=== PATIENT | male | born 1965 | race African-American/Black ===

== ENCOUNTER 2021-08-24 09:00 | Inpatient (IN) ==
[~2021-08-24 09:00] MED LIST: DEXTROSE 10% 250 ML BAG IV PRN; GLUCAGON 1 MG VIAL IM PRN
[2021-08-24] MEDS ORDERED: CLORAZEPATE 3.75 MG TABLET PO PRN (09:04)
[2021-08-24] MEDS ORDERED: MORPHINE 2 MG/1 ML SYRINGE IV PRN (09:04)
[2021-08-24] MEDS ORDERED: NITROGLYCERIN SL 0.4 MG TABLET SL PRN (09:04)
[2021-08-24 10:26] LABS: Basophils % 0.6 % (0.0-0.8); Eosinophils # 0.1 10*3/uL (0.0-0.87); Eosinophils % 2.3 % (0.00-10.9); Hematocrit 31.2 VOL% (42.0-52.0); Hemoglobin 10.2 GM/DL (14.0-18.0); Immature Granulocytes % 0.3 %; Immature Granulocytes Absolute 0.01 #; Lymphocytes # 0.8 10*3/uL (1.4-4.0); Lymphocytes % 23.9 % (21.2-54.2); Mean Corpuscular HGB Conc 32.7 GM/DL (32-36); Mean Corpuscular Volume 91.8 FL (87-102); Mean Platelet Volume 11.8 FL (9.6-12.0); Monocytes # 0.3 10*3/uL (0.11-0.8); Monocytes % 8.2 % (1.7-12.7); Neutrophils % 64.7 % (38.7-73.9); Platelet Count 93 T/CUMM (130-400); Red Cell Distribution Width 13.3 % (9.3-17.3); White Blood Count 3.4 T/CUMM (4-12)
[2021-08-24 10:42] LABS: Arterial Base Excess iSTAT 4 MMOL/L (-2.5-2.5); Arterial Bicarbonate iSTAT 28.6 MMOL/L (20-26); Arterial O2 Saturation iSTAT 97 % (95-100); Arterial PCO2 iSTAT 44 MM HG (35-48); Arterial PO2 iSTAT 92 MM HG (80-95); Arterial Total CO2 iSTAT 30 MMO/L (23-27); Arterial pH iSTAT 7.426 (7.35-7.45)
[2021-08-24 10:46] LABS: Hypochromia Slight; Microcytosis Slight; Platelet Estimate Decreased
[2021-08-24 10:55] LABS: Albumin 3.1 G/DL (3.4-5.0); Bilirubin,Total 0.6 MG/DL (0.20-1.00); Calcium 8.8 MG/DL (8.5-10.1); Osmolality,Calculated 296.4 MOS/KG (273-304); Potassium 4.5 MMOL/L (3.5-5.1); Total Protein 7.6 G/DL (6.4-8.2)
[2021-08-24] MEDS: CHLORHEXIDINE 4% SOLN 118 ML BOTTLE TOP SCH (17:00)
[2021-08-24] MEDS: SODIUM CHLORIDE 0.9% 1,000 ML IV SCH (17:00)
[2021-08-24] MEDS: SEVELAMER CARBONATE 800 MG TABLET PO SCH ×2 (18:31→21:44)
[2021-08-24] MEDS: carvediloL 25 MG TABLET PO SCH (18:32)
[2021-08-24] MEDS: CHLORHEXIDINE 0.12% ORAL RINSE 60 ML BOTTLE SWISH/SPIT SCH ×2 (19:15→21:44)
[2021-08-24] MEDS ORDERED: NITROGLYCERIN DRIP 50 MG/250 ML BOTTLE IV PRN (21:26)
[2021-08-25] MEDS: CHLORHEXIDINE 4% SOLN 118 ML BOTTLE TOP SCH ×2 (00:05→04:00)
[2021-08-25] MEDS ORDERED: PAPAVERINE 60 MG/2 ML VIAL ONE ×2 (04:19→08:56)
[2021-08-25] MEDS ORDERED: VANCOMYCIN 1,000 MG VIAL ONE (04:20)
[2021-08-25] MEDS ORDERED: VANCOMYCIN 500 MG VIAL ONE (04:20)
[2021-08-25] MEDS ORDERED: CEFUROXIME INJ 1,500 MG in SODIUM CHLORIDE 0.9% 100 ML IV ONE (05:00)
[2021-08-25] MEDS ORDERED: DIAZEPAM 5 MG TABLET PO ONE (05:30)
[2021-08-25] MEDS ORDERED: FAMOTIDINE 20 MG TABLET PO ONE (05:30)
[2021-08-25 05:31] LABS: Basophils % 0.8 % (0.0-0.8); Eosinophils # 0.1 10*3/uL (0.0-0.87); Eosinophils % 2.3 % (0.00-10.9); Hematocrit 30.3 VOL% (42.0-52.0); Hemoglobin 9.9 GM/DL (14.0-18.0); Immature Granulocytes % 0.5 %; Immature Granulocytes Absolute 0.02 #; Lymphocytes # 0.9 10*3/uL (1.4-4.0); Lymphocytes % 21.8 % (21.2-54.2); Mean Corpuscular HGB Conc 32.7 GM/DL (32-36); Mean Corpuscular Volume 92.1 FL (87-102); Mean Platelet Volume 11.9 FL (9.6-12.0); Monocytes # 0.3 10*3/uL (0.11-0.8); Monocytes % 8.5 % (1.7-12.7); Neutrophils % 66.1 % (38.7-73.9); Platelet Count 103 T/CUMM (130-400); Red Blood Count 3.29 MC/CUMM (3.8-5.5); Red Cell Distribution Width 13.2 % (9.3-17.3); White Blood Count 3.9 T/CUMM (4-12)
[2021-08-25] MEDS ORDERED: SEVOFLURANE 1 UNIT/15 MINUTE INH ONE (05:44)
[2021-08-25] MEDS ORDERED: MINERAL OIL/PETROLATUM OPH OINT 3.5 GM TUBE ONE (05:44)
[2021-08-25] MEDS ORDERED: SUFentanil 250 MCG/5 ML AMP ONE (05:44)
[2021-08-25] MEDS ORDERED: AMINOCAPROIC ACID 5,000 MG/20 ML VIAL ONE (05:44)
[2021-08-25] MEDS ORDERED: ePHEDrine 50 MG/ML VIAL ONE (05:44)
[2021-08-25] MEDS ORDERED: NITROGLYCERIN DRIP 50 MG/250 ML BOTTLE IV ONE (05:44)
[2021-08-25] MEDS ORDERED: MIDAZOLAM 10 MG/2 ML VIAL ONE ×4 (05:44→08:58)
[2021-08-25] MEDS ORDERED: SODIUM CHLORIDE 0.9% 1,000 ML IV ONE (05:44)
[2021-08-25] MEDS ORDERED: ETOMIDATE 40 MG/20 ML VIAL IV ONE (05:44)
[2021-08-25] MEDS ORDERED: SODIUM CHLORIDE 0.9% 250 ML IV ONE ×3 (05:44→10:59)
[2021-08-25] MEDS ORDERED: CALCIUM CHLORIDE 1,000 MG/10 ML VIAL IV ONE ×2 (05:44→10:54)
[2021-08-25] MEDS ORDERED: VECURONIUM 10 MG VIAL IV ONE (05:44)
[2021-08-25] MEDS ORDERED: LIDOCAINE 2% 5 ML VIAL ONE ×2 (05:44→10:44)
[2021-08-25] MEDS ORDERED: LACTATED RINGERS 1,000 ML IV ONE (05:44)
[2021-08-25 05:48] LABS: Calcium 9.1 MG/DL (8.5-10.1); Osmolality,Calculated 287.5 MOS/KG (273-304); Potassium 4.5 MMOL/L (3.5-5.1)
[2021-08-25] MEDS ORDERED: PHENYLEPHRINE 10 MG/1 ML VIAL IV ONE (06:01)
[2021-08-25 07:41] LABS: ABG Base Excess 3.9 MMOL/L (-2.5-2.5); ABG Oxygen Saturation 99.6 % (95-100); ABG PCO2 43.5 MM HG (35-48); ABG PH 7.428 (7.35-7.45); ABG TCO2 26.3 MMOL/L (23-27); Glucose Heart Surgery 93 MG/DL (74-106); Hematocrit Heart Surgery 28.6 PERCENT (42-52); Hemoglobin Heart Surgery 9.2 G/DL (14.0-18.0); Ionized Calcium Arterial 1.11 MMOL/L (1.21-1.46); PCO2 Patient Temp Arterial 43.5 MMHG; PH Patient Temp Arterial 7.428; Patient Temperature 37 CELCIUS; Potassium Heart/CVR 4.6 MMOL/L (3.5-5.1); Sodium Heart/CVR 139 MMOL/L (135-145)
[2021-08-25] MEDS ORDERED: SODIUM BICARBONATE 50 MEQ/50 ML VIAL IV ONE ×3 (08:14→11:13)
[2021-08-25] MEDS ORDERED: PHENYLEPHRINE DRIP 40 MG/250 ML PREMIX IV ONE (08:15)
[2021-08-25] MEDS ORDERED: CALCIUM CHLORIDE 1,000 MG/10 ML SYRINGE IV ONE (08:15)
[2021-08-25] MEDS ORDERED: NITROPRUSSIDE 50 MG/2 ML VIAL ONE (08:15)
[2021-08-25] MEDS ORDERED: POTASSIUM CHLORIDE RIDER 20 MEQ/100 ML PREMIX IV ONE (08:15)
[2021-08-25] MEDS ORDERED: HEPARIN/NACL 0.9% 2 UNITS/ML 1,000 UNIT/500 ML BAG IV ONE (09:02)
[2021-08-25 09:11] LABS: Hematocrit Heart Surgery 20.4 PERCENT (42-52); Hemoglobin Heart Surgery 6.5 G/DL (14.0-18.0); PH Patient Temp Venous 7.441; PO2 Patient Temp Venous 40.7 MM HG; Potassium Heart/CVR 5.6 MMOL/L (3.5-5.1); VBG Base Excess 2.7 MEQ/L (0-4); VBG HCO3 26.6 MEQ/L (24-28); VBG Oxygen Saturation 82.6 %; VBG PCO2 45.1 MMHG (41-51); VBG PH 7.397; VBG PO2 49.9 MMHG (17-40); VBG Total CO2 26.5 MMOL/L
[2021-08-25 09:41] LABS: Hematocrit Heart Surgery 24.4 PERCENT (42-52); Hemoglobin Heart Surgery 7.8 G/DL (14.0-18.0); PCO2 Patient Temp Venous 32.3 MM HG; PH Patient Temp Venous 7.477; PO2 Patient Temp Venous 37.6 MM HG; Potassium Heart/CVR 5.9 MMOL/L (3.5-5.1); VBG Base Excess 0.8 MEQ/L (0-4); VBG HCO3 24.9 MEQ/L (24-28); VBG Oxygen Saturation 79.5 %; VBG PCO2 37.4 MMHG (41-51); VBG PH 7.433; VBG PO2 46.2 MMHG (17-40); VBG Total CO2 23.4 MMOL/L
[2021-08-25 10:12] LABS: Hematocrit Heart Surgery 23.2 PERCENT (42-52); Hemoglobin Heart Surgery 7.4 G/DL (14.0-18.0); PCO2 Patient Temp Venous 38.6 MM HG; PH Patient Temp Venous 7.394; PO2 Patient Temp Venous 39.9 MM HG; Potassium Heart/CVR 5.8 MMOL/L (3.5-5.1); VBG Base Excess -1.1 MEQ/L (0-4); VBG HCO3 23.2 MEQ/L (24-28); VBG Oxygen Saturation 68.3 %; VBG PCO2 38.6 MMHG (41-51); VBG PH 7.394; VBG PO2 39.9 MMHG (17-40); VBG Total CO2 22.3 MMOL/L
[2021-08-25] MEDS ORDERED: THROMBIN TOPICAL (RECOMBINANT) 5,000 UNIT VIAL TOP ONE (10:26)
[2021-08-25 10:36] LABS: ABG Base Excess -2.3 MMOL/L (-2.5-2.5); ABG HCO3 22.5 MMOL/L (20-26); ABG Oxygen Saturation 99.4 % (95-100); ABG PCO2 38.5 MM HG (35-48); ABG PH 7.376 (7.35-7.45); ABG TCO2 21.3 MMOL/L (23-27); Glucose Heart Surgery 147 MG/DL (74-106); Hematocrit Heart Surgery 22.4 PERCENT (42-52); Hemoglobin Heart Surgery 7.2 G/DL (14.0-18.0); Ionized Calcium Arterial 1.14 MMOL/L (1.21-1.46); PCO2 Patient Temp Arterial 38.5 MMHG; PH Patient Temp Arterial 7.376; Patient Temperature 37 CELCIUS; Potassium Heart/CVR 5.3 MMOL/L (3.5-5.1); Sodium Heart/CVR 136 MMOL/L (135-145)
[2021-08-25] MEDS ORDERED: methylPREDNISolone SOD SUC 1,000 MG/8 ML VIAL ONE (10:44)
[2021-08-25] MEDS ORDERED: MAGNESIUM SULFATE 5 GM/10 ML VIAL IV ONE (10:44)
[2021-08-25] MEDS ORDERED: ALBUMIN 25% 25 GM/100 ML VIAL IV ONE (10:44)
[2021-08-25] MEDS ORDERED: HEPARIN 10,000 UNIT/10 ML VIAL ONE (10:45)
[2021-08-25] MEDS ORDERED: PROTAMINE SULFATE 250 MG/25 ML VIAL IV ONE (10:45)
[2021-08-25] MEDS ORDERED: MANNITOL 12.5 GM/50 ML VIAL IV ONE (10:45)
[2021-08-25] MEDS ORDERED: DEXTROSE 5% KCL 20 MEQ 20 MEQ/1,000 ML BAG IV ONE (10:45)
[2021-08-25] MEDS ORDERED: PROTAMINE SULFATE 50 MG/5 ML VIAL IV ONE ×2 (10:46→11:10)
[2021-08-25] MEDS ORDERED: LACTATED RINGERS 250 ML IV PRN (10:55)
[2021-08-25] MEDS ORDERED: PHENYLEPHRINE DRIP 40 MG/250 ML PREMIX IV PRN (10:55)
[2021-08-25] MEDS ORDERED: ONDANSETRON 4 MG/2 ML VIAL IV PRN (10:55)
[2021-08-25] MEDS ORDERED: MIDAZOLAM 10 MG/2 ML VIAL IV PRN (10:55)
[2021-08-25] MEDS ORDERED: VECURONIUM 10 MG VIAL IV PRN ×2 (10:55)
[2021-08-25] MEDS ORDERED: POTASSIUM CHLORIDE RIDER 20 MEQ/100 ML PREMIX IV PRN (10:55)
[2021-08-25] MEDS ORDERED: MAGNESIUM SULF RIDER 2 GM/50 ML PREMIX IV PRN (10:55)
[2021-08-25] MEDS ORDERED: INSULIN REGULAR 100 UNIT/ML IV ONE ×2 (10:55→17:09)
[2021-08-25] MEDS ORDERED: DEXTROSE 10% 250 ML BAG IV PRN ×2 (10:55)
[2021-08-25] MEDS ORDERED: MIDAZOLAM 2 MG/2 ML VIAL IV PRN (10:55)
[2021-08-25] MEDS ORDERED: CALCIUM CHLORIDE 1,000 MG/10 ML SYRINGE IV PRN (10:55)
[2021-08-25] MEDS ORDERED: ACETAMINOPHEN 650 MG SUPP RECTAL PRN (10:55)
[2021-08-25] MEDS ORDERED: MAGNESIUM SULF RIDER 4 GM/100 ML PREMIX IV PRN (10:55)
[2021-08-25] MEDS ORDERED: POTASSIUM CHLORIDE RIDER 10 MEQ/100 ML PREMIX IV PRN (10:55)
[2021-08-25] MEDS ORDERED: INSULIN REGULAR 100 UNIT/ML IV PRN (10:55)
[2021-08-25] MEDS ORDERED: ALBUMIN 5% 12.5 GM/250 ML VIAL IV PRN (10:55)
[2021-08-25] MEDS ORDERED: FAMOTIDINE 20 MG/2 ML VIAL IV ONE (11:02)
[2021-08-25 11:10] LABS: ABG Base Excess -4.7 MMOL/L (-2.5-2.5); ABG HCO3 20.5 MMOL/L (20-26); ABG Oxygen Saturation 99.5 % (95-100); ABG PCO2 42.9 MM HG (35-48); ABG PH 7.306 (7.35-7.45); ABG TCO2 19.9 MMOL/L (23-27); Glucose Heart Surgery 148 MG/DL (74-106); Hematocrit Heart Surgery 27.3 PERCENT (42-52); Hemoglobin Heart Surgery 8.8 G/DL (14.0-18.0); Ionized Calcium Arterial 1.44 MMOL/L (1.21-1.46); PCO2 Patient Temp Arterial 42.9 MMHG; PH Patient Temp Arterial 7.306; Patient Temperature 37 CELCIUS; Potassium Heart/CVR 5.3 MMOL/L (3.5-5.1); Sodium Heart/CVR 136 MMOL/L (135-145)
[2021-08-25] MEDS ORDERED: SODIUM CHLORIDE 0.9% 250 ML IV PRN (11:16)
[2021-08-25] MEDS: CHLORHEXIDINE 0.12% ORAL RINSE 60 ML BOTTLE SWISH/SPIT SCH ×2 (11:21→21:12)
[2021-08-25] MEDS: carvediloL 25 MG TABLET PO SCH (11:21)
[2021-08-25] MEDS: SODIUM CHLORIDE 0.9% 1,000 ML IV SCH (11:21)
[2021-08-25] MEDS: SEVELAMER CARBONATE 800 MG TABLET PO SCH (11:21)
[2021-08-25] MEDS ORDERED: NITROGLYCERIN DRIP 50 MG/250 ML BOTTLE IV PRN (11:56)
[2021-08-25] MEDS: SODIUM CHLORIDE 0.45% 1,000 ML IV SCH ×2 (12:02→14:21)
[2021-08-25 12:46] LABS: ABG Base Excess -0.2 MMOL/L (-2.5-2.5); ABG HCO3 24.3 MMOL/L (20-26); ABG Oxygen Saturation 99.3 % (95-100); ABG PCO2 38.5 MM HG (35-48); ABG PH 7.407 (7.35-7.45); ABG TCO2 22.3 MMOL/L (23-27); Glucose Heart Surgery 147 MG/DL (74-106); Hematocrit Heart Surgery 28.1 PERCENT (42-52); Hemoglobin Heart Surgery 9.1 G/DL (14.0-18.0); Potassium Heart/CVR 4.8 MMOL/L (3.5-5.1)
[2021-08-25 12:48] LABS: Basophils % 0.2 % (0.0-0.8); Eosinophils % 0.5 % (0.00-10.9); Hematocrit 26.1 VOL% (42.0-52.0); Hemoglobin 8.7 GM/DL (14.0-18.0); Immature Granulocytes % 0.3 %; Immature Granulocytes Absolute 0.02 #; Lymphocytes # 0.5 10*3/uL (1.4-4.0); Lymphocytes % 9.3 % (21.2-54.2); Mean Corpuscular HGB Conc 33.3 GM/DL (32-36); Mean Corpuscular Volume 90.9 FL (87-102); Mean Platelet Volume 11.4 FL (9.6-12.0); Monocytes # 0.3 10*3/uL (0.11-0.8); Monocytes % 4.8 % (1.7-12.7); Neutrophils % 84.9 % (38.7-73.9); Platelet Count 103 T/CUMM (130-400); Red Blood Count 2.87 MC/CUMM (3.8-5.5); Red Cell Distribution Width 13.5 % (9.3-17.3); White Blood Count 5.8 T/CUMM (4-12)
[2021-08-25] MEDS: NITROPRUSSIDE 100 MG in DEXTROSE 5% 250 ML IV PRN (13:03)
[2021-08-25 13:09] LABS: CKMB % 3.66 %; High Sensitive Troponin I* 3018.7 ng/L (0-78)
[2021-08-25 13:10] LABS: INR 1.4; PT Patient Result 15.1 SECS (10.5-12.0); Partial Thromboplastin Time 31.8 SECS (23.8-32.1)
[2021-08-25 13:34] LABS: Albumin 2.5 G/DL (3.4-5.0); Bilirubin,Total 1.2 MG/DL (0.20-1.00); Calcium 8.5 MG/DL (8.5-10.1); Osmolality,Calculated 291.3 MOS/KG (273-304); Total Protein 5.8 G/DL (6.4-8.2)
[2021-08-25 13:53] LABS: ABG Base Excess 0.1 MMOL/L (-2.5-2.5); ABG HCO3 24.6 MMOL/L (20-26); ABG Oxygen Saturation 98.5 % (95-100); ABG PCO2 39.1 MM HG (35-48); ABG PH 7.408 (7.35-7.45); ABG TCO2 22.9 MMOL/L (23-27); Glucose Heart Surgery 176 MG/DL (74-106); Hematocrit Heart Surgery 26.2 PERCENT (42-52); Hemoglobin Heart Surgery 8.4 G/DL (14.0-18.0); Potassium Heart/CVR 5.2 MMOL/L (3.5-5.1)
[2021-08-25] MEDS: MORPHINE 10 MG/1 ML VIAL IV PRN (14:39)
[2021-08-25 14:52] LABS: Basophils % 0.2 % (0.0-0.8); Eosinophils % 0.5 % (0.00-10.9); Hematocrit 26.9 VOL% (42.0-52.0); Hemoglobin 9.2 GM/DL (14.0-18.0); Immature Granulocytes % 0.8 %; Immature Granulocytes Absolute 0.05 #; Lymphocytes # 0.5 10*3/uL (1.4-4.0); Lymphocytes % 8.1 % (21.2-54.2); Mean Corpuscular HGB Conc 34.2 GM/DL (32-36); Mean Corpuscular Volume 89.4 FL (87-102); Mean Platelet Volume 11.5 FL (9.6-12.0); Monocytes # 0.3 10*3/uL (0.11-0.8); Monocytes % 4.5 % (1.7-12.7); Neutrophils % 85.9 % (38.7-73.9); Platelet Count 116 T/CUMM (130-400); Red Blood Count 3.01 MC/CUMM (3.8-5.5); Red Cell Distribution Width 13.6 % (9.3-17.3); White Blood Count 6.4 T/CUMM (4-12)
[2021-08-25] MEDS: INSULIN REGULAR DRIP 100 ML IV SCH (14:54)
[2021-08-25 15:15] LABS: Platelet Estimate Decreased
[2021-08-25 17:41] LABS: ABG Base Excess -1.4 MMOL/L (-2.5-2.5); ABG HCO3 23.3 MMOL/L (20-26); ABG PCO2 41.6 MM HG (35-48); ABG PH 7.367 (7.35-7.45); Glucose Heart Surgery 146 MG/DL (74-106); Hematocrit Heart Surgery 28.8 PERCENT (42-52); Hemoglobin Heart Surgery 9.3 G/DL (14.0-18.0); Potassium Heart/CVR 4.6 MMOL/L (3.5-5.1)
[2021-08-25] MEDS: CEFUROXIME INJ 1,500 MG in SODIUM CHLORIDE 0.9% 100 ML IV SCH (18:26)
[2021-08-25 18:59] LABS: CKMB % 3.57 %
[2021-08-25 19:01] LABS: High Sensitive Troponin I* 4728.6 ng/L (0-78)
[2021-08-25 21:13] LABS: ABG Base Excess -2.5 MMOL/L (-2.5-2.5); ABG HCO3 22.4 MMOL/L (20-26); ABG Oxygen Saturation 98.8 % (95-100); ABG PCO2 41.6 MM HG (35-48); ABG TCO2 21.2 MMOL/L (23-27); Glucose Heart Surgery 129 MG/DL (74-106); Hematocrit Heart Surgery 28.6 PERCENT (42-52); Hemoglobin Heart Surgery 9.2 G/DL (14.0-18.0); Potassium Heart/CVR 5.6 MMOL/L (3.5-5.1)
[2021-08-25 23:20] LABS: ABG Base Excess -4.2 MMOL/L (-2.5-2.5); ABG HCO3 20.8 MMOL/L (20-26); ABG Oxygen Saturation 94.7 % (95-100); ABG PCO2 49.5 MM HG (35-48); ABG PH 7.272 (7.35-7.45); ABG PO2 84.9 MM HG (80-95); ABG TCO2 21.2 MMOL/L (23-27); Glucose Heart Surgery 162 MG/DL (74-106); Hematocrit Heart Surgery 29.7 PERCENT (42-52); Hemoglobin Heart Surgery 9.6 G/DL (14.0-18.0)
[2021-08-25 23:24] LABS: Potassium Heart/CVR 6.7 MMOL/L (3.5-5.1)
[2021-08-25] MEDS ORDERED: INSULIN REGULAR 10 UNIT, CALCIUM GLUCONATE 1,000 MG in DEXTROSE 10% 250 ML IV ONE (23:25)
[2021-08-26 02:18] LABS: ABG Base Excess -4.2 MMOL/L (-2.5-2.5); ABG HCO3 20.9 MMOL/L (20-26); ABG Oxygen Saturation 95.7 % (95-100); ABG PCO2 43.6 MM HG (35-48); ABG PO2 87.2 MM HG (80-95); ABG TCO2 20.5 MMOL/L (23-27); Glucose Heart Surgery 166 MG/DL (74-106); Hematocrit Heart Surgery 27.3 PERCENT (42-52); Hemoglobin Heart Surgery 8.8 G/DL (14.0-18.0); Potassium Heart/CVR 4.6 MMOL/L (3.5-5.1)
[2021-08-26] MEDS: CHLORHEXIDINE 4% SOLN 118 ML BOTTLE TOP PRN ×2 (04:00→22:40)
[2021-08-26 04:23] LABS: ABG Base Excess -3.7 MMOL/L (-2.5-2.5); ABG HCO3 21.3 MMOL/L (20-26); ABG PH 7.302 (7.35-7.45); ABG PO2 78.1 MM HG (80-95); ABG TCO2 21.2 MMOL/L (23-27); Glucose Heart Surgery 77 MG/DL (74-106); Hematocrit Heart Surgery 28.2 PERCENT (42-52); Hemoglobin Heart Surgery 9.1 G/DL (14.0-18.0); Potassium Heart/CVR 4.7 MMOL/L (3.5-5.1)
[2021-08-26 04:26] LABS: Basophils % 0.1 % (0.0-0.8); Hematocrit 27.6 VOL% (42.0-52.0); Immature Granulocytes % 0.5 %; Immature Granulocytes Absolute 0.04 #; Lymphocytes # 0.5 10*3/uL (1.4-4.0); Lymphocytes % 5.9 % (21.2-54.2); Mean Corpuscular HGB Conc 32.6 GM/DL (32-36); Mean Corpuscular Volume 91.4 FL (87-102); Monocytes # 0.3 10*3/uL (0.11-0.8); Monocytes % 3.8 % (1.7-12.7); Neutrophils % 89.7 % (38.7-73.9); Platelet Count 111 T/CUMM (130-400); Red Blood Count 3.02 MC/CUMM (3.8-5.5); Red Cell Distribution Width 14.1 % (9.3-17.3); White Blood Count 7.9 T/CUMM (4-12)
[2021-08-26 04:44] LABS: Albumin 2.9 G/DL (3.4-5.0); Bilirubin,Direct 0.56 MG/DL (0.0-0.20); Bilirubin,Total 0.8 MG/DL (0.20-1.00); Osmolality,Calculated 295.1 MOS/KG (273-304); Potassium 4.9 MMOL/L (3.5-5.1); Total Protein 6.3 G/DL (6.4-8.2)
[2021-08-26 04:53] LABS: CKMB % 5.3 %
[2021-08-26 05:01] LABS: High Sensitive Troponin I* 9910.9 ng/L (0-78)
[2021-08-26] MEDS: CEFUROXIME INJ 1,500 MG in SODIUM CHLORIDE 0.9% 100 ML IV SCH ×2 (06:37→18:09)
[2021-08-26 08:07] LABS: ABG Base Excess -5.1 MMOL/L (-2.5-2.5); ABG Oxygen Saturation 95.3 % (95-100); ABG PCO2 36.8 MM HG (35-48); ABG PH 7.352 (7.35-7.45); ABG TCO2 21.1 MMOL/L (23-27); Glucose Heart Surgery 125 MG/DL (74-106); Hemoglobin Heart Surgery 8.9 G/DL (14.0-18.0)
[2021-08-26 08:09] LABS: Potassium Heart/CVR 6.8 MMOL/L (3.5-5.1)
[2021-08-26] MEDS: MORPHINE 10 MG/1 ML VIAL IV PRN ×2 (08:37→13:34)
[2021-08-26] MEDS ORDERED: amLODIPine 5 MG TABLET PO SCH (09:00)
[2021-08-26] MEDS ORDERED: PANTOPRAZOLE 40 MG VIAL IV ONE (09:00)
[2021-08-26] MEDS: CHLORHEXIDINE 0.12% ORAL RINSE 60 ML BOTTLE SWISH/SPIT SCH ×2 (09:01→21:34)
[2021-08-26 09:21] LABS: ABG Base Excess -1.1 MMOL/L (-2.5-2.5); ABG HCO3 23.4 MMOL/L (20-26); ABG Oxygen Saturation 95.3 % (95-100); ABG PCO2 46.1 MM HG (35-48); ABG PO2 83.6 MM HG (80-95); ABG TCO2 22.9 MMOL/L (23-27); Glucose Heart Surgery 136 MG/DL (74-106); Hematocrit Heart Surgery 29.7 PERCENT (42-52); Hemoglobin Heart Surgery 9.6 G/DL (14.0-18.0); Potassium Heart/CVR 5.5 MMOL/L (3.5-5.1)
[2021-08-26 10:58] LABS: ABG Base Excess 0.5 MMOL/L (-2.5-2.5); ABG HCO3 24.9 MMOL/L (20-26); ABG Oxygen Saturation 96.3 % (95-100); ABG PCO2 42.2 MM HG (35-48); ABG PH 7.391 (7.35-7.45); ABG PO2 86.1 MM HG (80-95); ABG TCO2 23.2 MMOL/L (23-27); Glucose Heart Surgery 129 MG/DL (74-106); Hemoglobin Heart Surgery 10.4 G/DL (14.0-18.0); Potassium Heart/CVR 4.4 MMOL/L (3.5-5.1)
[2021-08-26] MEDS ORDERED: DEXTROSE 10% 25 GM/250 ML BAG IV PRN (10:58)
[2021-08-26] MEDS ORDERED: GLUCAGON 1 MG VIAL IM PRN (10:58)
[2021-08-26] MEDS: INSULIN REGULAR DRIP 100 ML IV SCH (11:02)
[2021-08-26 11:17] LABS: CKMB % 5.44 %
[2021-08-26] MEDS: ASPIRIN CHEW 81 MG TABLET PO SCH (11:35)
[2021-08-26] MEDS: carvediloL 6.25 MG TABLET PO SCH ×2 (11:35→21:34)
[2021-08-26] MEDS: INSULIN REGULAR 100 UNIT/ML SUBCUT SCH ×3 (11:45→20:43)
[2021-08-26] MEDS: SODIUM CHLORIDE 0.45% 1,000 ML IV SCH ×2 (11:45→11:47)
[2021-08-26] MEDS ORDERED: NITROPRUSSIDE 50 MG/2 ML VIAL ONE (12:21)
[2021-08-26] MEDS: NITROPRUSSIDE 100 MG in DEXTROSE 5% 250 ML IV PRN (12:27)
[2021-08-26] MEDS: SEVELAMER CARBONATE 800 MG TABLET PO SCH ×2 (12:29→16:43)
[2021-08-26] MEDS ORDERED: amLODIPine 5 MG TABLET PO ONE (14:37)
[2021-08-26] MEDS ORDERED: HYDROmorphone 1 MG/1 ML SYRINGE IV PRN (17:15)
[2021-08-26 18:50] LABS: CKMB % 3.69 %
[2021-08-27 04:48] LABS: Hematocrit 24.8 VOL% (42.0-52.0); Hemoglobin 8.1 GM/DL (14.0-18.0); Immature Granulocytes % 1.1 %; Immature Granulocytes Absolute 0.09 #; Lymphocytes # 0.4 10*3/uL (1.4-4.0); Lymphocytes % 4.8 % (21.2-54.2); Mean Corpuscular HGB Conc 32.7 GM/DL (32-36); Mean Corpuscular Volume 92.5 FL (87-102); Mean Platelet Volume 12.2 FL (9.6-12.0); Monocytes # 0.6 10*3/uL (0.11-0.8); Monocytes % 7.6 % (1.7-12.7); Neutrophils % 86.5 % (38.7-73.9); Platelet Count 83 T/CUMM (130-400); Red Blood Count 2.68 MC/CUMM (3.8-5.5); Red Cell Distribution Width 14.1 % (9.3-17.3); White Blood Count 7.9 T/CUMM (4-12)
[2021-08-27 05:05] LABS: Albumin 2.6 G/DL (3.4-5.0); Bilirubin,Direct 0.5 MG/DL (0.0-0.20); Bilirubin,Total 0.8 MG/DL (0.20-1.00); CKMB % 2.81 %; Calcium 8.6 MG/DL (8.5-10.1); Osmolality,Calculated 286.1 MOS/KG (273-304); Potassium 5.7 MMOL/L (3.5-5.1); Total Protein 6.2 G/DL (6.4-8.2)
[2021-08-27 05:07] LABS: Hypochromia 1+; Microcytosis 1+; Platelet Estimate Decreased
[2021-08-27] MEDS: ASPIRIN CHEW 81 MG TABLET PO SCH (08:05)
[2021-08-27] MEDS: SEVELAMER CARBONATE 800 MG TABLET PO SCH ×3 (08:06→16:50)
[2021-08-27] MEDS: carvediloL 6.25 MG TABLET PO SCH ×2 (08:06→22:07)
[2021-08-27] MEDS: amLODIPine 10 MG TABLET PO SCH (08:06)
[2021-08-27] MEDS ORDERED: ALUMINUM/MAGNES/SIMETH MAX STR 30 ML UDCUP PO PRN (08:39)
[2021-08-27] MEDS ORDERED: GLUCAGON 1 MG VIAL IM PRN (08:39)
[2021-08-27] MEDS ORDERED: POTASSIUM CHLORIDE 20 MEQ TABLET PO PRN (08:39)
[2021-08-27] MEDS ORDERED: MAGNESIUM SULF RIDER 2 GM/50 ML PREMIX IV PRN (08:39)
[2021-08-27] MEDS ORDERED: MAGNESIUM SULF RIDER 4 GM/100 ML PREMIX IV PRN (08:39)
[2021-08-27] MEDS ORDERED: ONDANSETRON 4 MG/2 ML VIAL IV PRN (08:39)
[2021-08-27] MEDS ORDERED: ACETAMINOPHEN 325 MG TABLET PO PRN (08:39)
[2021-08-27] MEDS ORDERED: MAGNESIUM HYDROXIDE SUSP 30 ML UDCUP PO PRN (08:39)
[2021-08-27] MEDS ORDERED: ZALEPLON 5 MG CAPSULE PO PRN (08:39)
[2021-08-27] MEDS ORDERED: DEXTROSE 10% 250 ML BAG IV PRN (08:44)
[2021-08-27] MEDS: DOCUSATE SODIUM 100 MG CAPSULE PO SCH (10:17)
[2021-08-27] MEDS: INSULIN REGULAR 100 UNIT/ML SUBCUT SCH ×3 (10:17→22:09)
[2021-08-27] MEDS: FERROUS SULFATE 325 MG TABLET PO SCH (10:17)
[2021-08-27] MEDS: CHLORHEXIDINE 0.12% ORAL RINSE 60 ML BOTTLE SWISH/SPIT SCH ×3 (10:17→22:08)
[2021-08-27] MEDS: PANTOPRAZOLE 40 MG TABLET PO SCH (10:18)
[2021-08-27] MEDS: FENOFIBRATE 145 MG TABLET PO SCH (22:06)
[2021-08-28 05:40] LABS: Eosinophils # 0.1 10*3/uL (0.0-0.87); Eosinophils % 1.4 % (0.00-10.9); Hematocrit 24.1 VOL% (42.0-52.0); Hemoglobin 7.9 GM/DL (14.0-18.0); Immature Granulocytes % 1.4 %; Immature Granulocytes Absolute 0.07 #; Lymphocytes # 0.7 10*3/uL (1.4-4.0); Lymphocytes % 13.2 % (21.2-54.2); Mean Corpuscular HGB Conc 32.8 GM/DL (32-36); Mean Corpuscular Volume 91.6 FL (87-102); Mean Platelet Volume 12.2 FL (9.6-12.0); Monocytes # 0.5 10*3/uL (0.11-0.8); Monocytes % 9.9 % (1.7-12.7); Neutrophils % 74.1 % (38.7-73.9); Platelet Count 74 T/CUMM (130-400); Red Blood Count 2.63 MC/CUMM (3.8-5.5); Red Cell Distribution Width 13.6 % (9.3-17.3); White Blood Count 5.2 T/CUMM (4-12)
[2021-08-28 06:00] LABS: Albumin 2.3 G/DL (3.4-5.0); Albumin 2.5 G/DL (3.4-5.0); Bilirubin,Direct 0.35 MG/DL (0.0-0.20); Bilirubin,Direct 0.39 MG/DL (0.0-0.20); Bilirubin,Indirect 0.3 MG/DL (0.0-1.0); Bilirubin,Total 0.6 MG/DL (0.20-1.00); Bilirubin,Total 0.7 MG/DL (0.20-1.00); CKMB % 1.51 %; Calcium 8.5 MG/DL (8.5-10.1); High Sensitive Troponin I* 11854.6 ng/L (0-78); Osmolality,Calculated 293.2 MOS/KG (273-304); Potassium 5.1 MMOL/L (3.5-5.1); Total Protein 6.4 G/DL (6.4-8.2)
[2021-08-28] MEDS ORDERED: FUROSEMIDE 40 MG/4 ML VIAL IV ONE (06:00)
[2021-08-28 06:12] LABS: Hypochromia 1+; Platelet Estimate Decreased
[2021-08-28] MEDS: PANTOPRAZOLE 40 MG TABLET PO SCH (09:06)
[2021-08-28] MEDS: SEVELAMER CARBONATE 800 MG TABLET PO SCH ×3 (09:06→17:21)
[2021-08-28] MEDS: carvediloL 6.25 MG TABLET PO SCH ×2 (09:07→20:53)
[2021-08-28] MEDS: DOCUSATE SODIUM 100 MG CAPSULE PO SCH (09:07)
[2021-08-28] MEDS: ASPIRIN CHEW 81 MG TABLET PO SCH (09:07)
[2021-08-28] MEDS: ROSUVASTATIN 20 MG TABLET PO SCH (09:07)
[2021-08-28] MEDS: amLODIPine 10 MG TABLET PO SCH (09:07)
[2021-08-28] MEDS: FERROUS SULFATE 325 MG TABLET PO SCH (09:07)
[2021-08-28] MEDS: CHLORHEXIDINE 0.12% ORAL RINSE 60 ML BOTTLE SWISH/SPIT SCH ×2 (09:10→20:55)
[2021-08-28] MEDS: INSULIN REGULAR 100 UNIT/ML SUBCUT SCH ×4 (09:11→22:25)
[2021-08-28] MEDS ORDERED: PNEUMOCOCCAL VACCINE (13 VALENT) 0.5 ML SYRINGE IM ONE (12:00)
[2021-08-28] MEDS: FENOFIBRATE 145 MG TABLET PO SCH (20:53)
[2021-08-29 05:09] LABS: Basophils % 0.4 % (0.0-0.8); Eosinophils # 0.1 10*3/uL (0.0-0.87); Eosinophils % 2.3 % (0.00-10.9); Hematocrit 25.9 VOL% (42.0-52.0); Hemoglobin 8.1 GM/DL (14.0-18.0); Immature Granulocytes % 0.9 %; Immature Granulocytes Absolute 0.05 #; Lymphocytes # 0.8 10*3/uL (1.4-4.0); Lymphocytes % 13.7 % (21.2-54.2); Mean Corpuscular HGB Conc 31.3 GM/DL (32-36); Mean Corpuscular Volume 92.2 FL (87-102); Mean Platelet Volume 12.4 FL (9.6-12.0); Monocytes # 0.7 10*3/uL (0.11-0.8); Monocytes % 11.7 % (1.7-12.7); Red Blood Count 2.81 MC/CUMM (3.8-5.5); Red Cell Distribution Width 13.6 % (9.3-17.3); White Blood Count 5.5 T/CUMM (4-12)
[2021-08-29 05:17] LABS: Platelet Count 93 T/CUMM (130-400)
[2021-08-29 05:28] LABS: Alanine Aminotransferase 39 U/L (16-61); Albumin 2.3 G/DL (3.4-5.0); Alkaline Phosphatase 68 U/L (45-117); Aspartate Amino Transferase 52 U/L (0-37); Bilirubin,Indirect 0.3 MG/DL (0.0-1.0); Blood Urea Nitrogen 64 MG/DL (7-18); Calcium 8.8 MG/DL (8.5-10.1); Carbon Dioxide 28 MMOL/L (21-32); Chloride 100 MMOL/L (98-107); Estimated Glom Filtration Rate 7 ML/MIN; Glucose 100 MG/DL (74-106); Osmolality,Calculated 285.2 MOS/KG (273-304); Potassium 4.8 MMOL/L (3.5-5.1); Sodium 134 MMOL/L (136-145); Total Protein 6.6 G/DL (6.4-8.2)
[2021-08-29 06:02] LABS: Hypochromia 1+; Microcytosis 1+; Ovalocytes Slight; Platelet Estimate Decreased
[2021-08-29] MEDS ORDERED: LACTULOSE 20 GM/30 ML UDCUP PO PRN (08:04)
[2021-08-29] MEDS: amLODIPine 10 MG TABLET PO SCH (08:08)
[2021-08-29] MEDS: SEVELAMER CARBONATE 800 MG TABLET PO SCH ×3 (08:08→16:48)
[2021-08-29] MEDS: carvediloL 6.25 MG TABLET PO SCH ×2 (08:09→21:13)
[2021-08-29] MEDS: DOCUSATE SODIUM 100 MG CAPSULE PO SCH ×2 (08:09→21:13)
[2021-08-29] MEDS: ROSUVASTATIN 20 MG TABLET PO SCH (08:09)
[2021-08-29] MEDS: ASPIRIN CHEW 81 MG TABLET PO SCH (08:09)
[2021-08-29] MEDS: CHLORHEXIDINE 0.12% ORAL RINSE 60 ML BOTTLE SWISH/SPIT SCH ×2 (08:09→21:14)
[2021-08-29] MEDS: PANTOPRAZOLE 40 MG TABLET PO SCH (08:09)
[2021-08-29] MEDS: FERROUS SULFATE 325 MG TABLET PO SCH (08:09)
[2021-08-29] MEDS: POLYETHYLENE GLYCOL POWDER 17 GM PACK PO SCH (08:09)
[2021-08-29] MEDS: INSULIN REGULAR 100 UNIT/ML SUBCUT SCH ×4 (08:10→21:31)
[2021-08-29] MEDS: FENOFIBRATE 145 MG TABLET PO SCH (21:13)
[2021-08-30] MEDS: INSULIN REGULAR 100 UNIT/ML SUBCUT SCH ×4 (07:23→21:11)
[2021-08-30 07:30] LABS: Basophils % 0.3 % (0.0-0.8); Eosinophils # 0.1 10*3/uL (0.0-0.87); Eosinophils % 3.5 % (0.00-10.9); Hematocrit 22.8 VOL% (42.0-52.0); Hemoglobin 7.4 GM/DL (14.0-18.0); Immature Granulocytes % 0.8 %; Immature Granulocytes Absolute 0.03 #; Lymphocytes # 0.7 10*3/uL (1.4-4.0); Lymphocytes % 18.7 % (21.2-54.2); Mean Corpuscular HGB Conc 32.5 GM/DL (32-36); Mean Corpuscular Volume 93.4 FL (87-102); Mean Platelet Volume 12.4 FL (9.6-12.0); Monocytes # 0.6 10*3/uL (0.11-0.8); Neutrophils % 60.7 % (38.7-73.9); Platelet Count 89 T/CUMM (130-400); Red Blood Count 2.44 MC/CUMM (3.8-5.5); Red Cell Distribution Width 13.7 % (9.3-17.3); White Blood Count 3.8 T/CUMM (4-12)
[2021-08-30 07:45] LABS: Osmolality,Calculated 297.1 MOS/KG (273-304)
[2021-08-30 07:52] LABS: Band Neutrophils 1 % (0-10); Eosinophils 2 % (0-10); Hypochromia 1+; Lymphocytes 14 % (20-55); Microcytosis 1+; Platelet Estimate Decreased; Total Cells Counted 100
[2021-08-30] MEDS: POLYETHYLENE GLYCOL POWDER 17 GM PACK PO SCH (09:11)
[2021-08-30] MEDS: ASPIRIN CHEW 81 MG TABLET PO SCH (09:12)
[2021-08-30] MEDS: carvediloL 6.25 MG TABLET PO SCH ×2 (09:12→21:06)
[2021-08-30] MEDS: PANTOPRAZOLE 40 MG TABLET PO SCH (09:13)
[2021-08-30] MEDS: amLODIPine 10 MG TABLET PO SCH (09:13)
[2021-08-30] MEDS: ROSUVASTATIN 20 MG TABLET PO SCH (09:14)
[2021-08-30] MEDS: FERROUS SULFATE 325 MG TABLET PO SCH (09:15)
[2021-08-30] MEDS: SEVELAMER CARBONATE 800 MG TABLET PO SCH ×3 (09:15→17:30)
[2021-08-30] MEDS: CHLORHEXIDINE 0.12% ORAL RINSE 60 ML BOTTLE SWISH/SPIT SCH ×2 (09:17→21:11)
[2021-08-30] MEDS: DOCUSATE SODIUM 100 MG CAPSULE PO SCH ×2 (09:17→21:07)
[2021-08-30] MEDS: FENOFIBRATE 145 MG TABLET PO SCH (21:06)
[2021-08-31 05:01] LABS: Basophils % 0.2 % (0.0-0.8); Eosinophils # 0.1 10*3/uL (0.0-0.87); Eosinophils % 2.6 % (0.00-10.9); Hemoglobin 7.1 GM/DL (14.0-18.0); Immature Granulocytes % 0.7 %; Immature Granulocytes Absolute 0.03 #; Lymphocytes # 0.8 10*3/uL (1.4-4.0); Lymphocytes % 18.7 % (21.2-54.2); Mean Corpuscular HGB Conc 32.3 GM/DL (32-36); Mean Platelet Volume 12.2 FL (9.6-12.0); Monocytes # 0.6 10*3/uL (0.11-0.8); Monocytes % 13.6 % (1.7-12.7); Neutrophils % 64.2 % (38.7-73.9); Platelet Count 96 T/CUMM (130-400); Red Blood Count 2.34 MC/CUMM (3.8-5.5); Red Cell Distribution Width 13.6 % (9.3-17.3); White Blood Count 4.3 T/CUMM (4-12)
[2021-08-31 05:28] LABS: Alanine Aminotransferase 34 U/L (16-61); Albumin 2.4 G/DL (3.4-5.0); Alkaline Phosphatase 67 U/L (45-117); Aspartate Amino Transferase 35 U/L (0-37); Bilirubin,Indirect 0.2 MG/DL (0.0-1.0); Blood Urea Nitrogen 104 MG/DL (7-18); Calcium 8.3 MG/DL (8.5-10.1); Carbon Dioxide 24 MMOL/L (21-32); Chloride 100 MMOL/L (98-107); Estimated Glom Filtration Rate 4 ML/MIN; Glucose 97 MG/DL (74-106); Potassium 5.4 MMOL/L (3.5-5.1); Sodium 136 MMOL/L (136-145); Total Protein 6.6 G/DL (6.4-8.2)
[2021-08-31 05:35] LABS: Hypochromia 1+; Microcytosis 1+
[2021-08-31] MEDS ORDERED: SODIUM CHLORIDE 0.9% 1,000 ML IV PRN (07:58)
[2021-08-31] MEDS: ASPIRIN CHEW 81 MG TABLET PO SCH (09:02)
[2021-08-31] MEDS: FERROUS SULFATE 325 MG TABLET PO SCH (09:02)
[2021-08-31] MEDS: POLYETHYLENE GLYCOL POWDER 17 GM PACK PO SCH (09:02)
[2021-08-31] MEDS: SEVELAMER CARBONATE 800 MG TABLET PO SCH ×3 (09:03→17:15)
[2021-08-31] MEDS: PANTOPRAZOLE 40 MG TABLET PO SCH (09:03)
[2021-08-31] MEDS: DOCUSATE SODIUM 100 MG CAPSULE PO SCH ×2 (09:03→22:21)
[2021-08-31] MEDS: carvediloL 6.25 MG TABLET PO SCH ×2 (09:03→22:21)
[2021-08-31] MEDS: ROSUVASTATIN 20 MG TABLET PO SCH (09:03)
[2021-08-31] MEDS: INSULIN REGULAR 100 UNIT/ML SUBCUT SCH ×4 (09:11→22:00)
[2021-08-31] MEDS: CHLORHEXIDINE 0.12% ORAL RINSE 60 ML BOTTLE SWISH/SPIT SCH ×2 (09:12→22:20)
[2021-08-31] MEDS: amLODIPine 10 MG TABLET PO SCH (13:40)
[2021-08-31] MEDS: FENOFIBRATE 145 MG TABLET PO SCH (22:21)
[2021-09-01] MEDS: INSULIN REGULAR 100 UNIT/ML SUBCUT SCH ×2 (08:16→12:00)
[2021-09-01 08:24] LABS: Basophils % 0.3 % (0.0-0.8); Eosinophils # 0.1 10*3/uL (0.0-0.87); Eosinophils % 2.2 % (0.00-10.9); Hemoglobin 9.6 GM/DL (14.0-18.0); Immature Granulocytes Absolute 0.06 #; Lymphocytes # 0.8 10*3/uL (1.4-4.0); Lymphocytes % 12.6 % (21.2-54.2); Mean Corpuscular HGB Conc 33.1 GM/DL (32-36); Mean Corpuscular Volume 90.6 FL (87-102); Mean Platelet Volume 10.9 FL (9.6-12.0); Monocytes # 0.6 10*3/uL (0.11-0.8); Monocytes % 10.7 % (1.7-12.7); Neutrophils % 73.2 % (38.7-73.9); Platelet Count 116 T/CUMM (130-400); Red Cell Distribution Width 13.7 % (9.3-17.3)
[2021-09-01 08:56] LABS: Alanine Aminotransferase 33 U/L (16-61); Albumin 2.6 G/DL (3.4-5.0); Alkaline Phosphatase 68 U/L (45-117); Aspartate Amino Transferase 32 U/L (0-37); Bilirubin,Indirect 0.4 MG/DL (0.0-1.0); Blood Urea Nitrogen 92 MG/DL (7-18); Calcium 9.1 MG/DL (8.5-10.1); Carbon Dioxide 25 MMOL/L (21-32); Chloride 99 MMOL/L (98-107); Estimated Glom Filtration Rate 5 ML/MIN; Glucose 100 MG/DL (74-106); Osmolality,Calculated 300.8 MOS/KG (273-304); Potassium 5.3 MMOL/L (3.5-5.1); Sodium 137 MMOL/L (136-145); Total Protein 7.3 G/DL (6.4-8.2)
[2021-09-01] MEDS: carvediloL 6.25 MG TABLET PO SCH (09:01)
[2021-09-01] MEDS: SEVELAMER CARBONATE 800 MG TABLET PO SCH ×2 (09:01→12:00)
[2021-09-01] MEDS: FERROUS SULFATE 325 MG TABLET PO SCH (09:01)
[2021-09-01] MEDS: POLYETHYLENE GLYCOL POWDER 17 GM PACK PO SCH (09:01)
[2021-09-01] MEDS: DOCUSATE SODIUM 100 MG CAPSULE PO SCH (09:01)
[2021-09-01] MEDS: amLODIPine 10 MG TABLET PO SCH (09:02)
[2021-09-01] MEDS: ROSUVASTATIN 20 MG TABLET PO SCH (09:02)
[2021-09-01] MEDS: ASPIRIN CHEW 81 MG TABLET PO SCH (09:02)
[2021-09-01] MEDS: PANTOPRAZOLE 40 MG TABLET PO SCH (09:02)
[2021-09-01] MEDS: CHLORHEXIDINE 0.12% ORAL RINSE 60 ML BOTTLE SWISH/SPIT SCH (09:05)
[2021-09-01 13:05] VITALS: BP 129/73
== END 2021-09-01 13:15 | disposition home health service (06) | DRG 235 ==
LOC: N.ICU 09:27 → N.CVR 08-25 10:32 → N.ICU 08-26 13:10 → N.TELES 08-27 16:10

== ENCOUNTER 2022-07-04 13:53 | Observation (INO) ==
[2022-07-04 14:59] LABS: Basophils % 0.3 % (0.0-0.8); Eosinophils % 1.2 % (0.00-10.9); Hematocrit 27.2 VOL% (42.0-52.0); Hemoglobin 8.8 GM/DL (14.0-18.0); Immature Granulocytes % 0.3 %; Immature Granulocytes Absolute 0.01 #; Lymphocytes # 0.5 10*3/uL (1.4-4.0); Lymphocytes % 15.3 % (21.2-54.2); Mean Corpuscular HGB Conc 32.4 GM/DL (32-36); Mean Corpuscular Volume 93.8 FL (87-102); Mean Platelet Volume 12.6 FL (9.6-12.0); Monocytes # 0.1 10*3/uL (0.11-0.8); Monocytes % 2.8 % (1.7-12.7); Neutrophils % 80.1 % (38.7-73.9); Platelet Count 60 T/CUMM (130-400); Red Cell Distribution Width 16.6 % (9.3-17.3); White Blood Count 3.21 T/CUMM (4-12)
[2022-07-04 15:19] LABS: Albumin 2.9 G/DL (3.4-5.0); Bilirubin,Total 1.4 MG/DL (0.20-1.00); Calcium 9.1 MG/DL (8.5-10.1); Osmolality,Calculated 291.8 MOS/KG (273-304); Potassium 3.8 MMOL/L (3.5-5.1); Total Protein 7.8 G/DL (6.4-8.2)
[2022-07-04] MEDS ORDERED: ONDANSETRON 4 MG/2 ML VIAL IV PRN (16:51)
[2022-07-04] MEDS ORDERED: ACETAMINOPHEN 325 MG TABLET PO PRN (16:51)
[2022-07-04] MEDS ORDERED: ZALEPLON 5 MG CAPSULE PO PRN (16:51)
[2022-07-04] MEDS: AZITHROMYCIN INJ 500 MG in SODIUM CHLORIDE 0.9% 250 ML IV SCH (18:48)
[2022-07-04] MEDS ORDERED: NITROGLYCERIN SL 0.4 MG TABLET SL PRN (19:33)
[2022-07-04] MEDS: ALBUTEROL/IPRATROPIUM 3 ML NEB RESP TX SCH (19:34)
[2022-07-04] MEDS: FENOFIBRATE 145 MG TABLET PO SCH (22:12)
[2022-07-04] MEDS: carvediloL 25 MG TABLET PO SCH (22:12)
[2022-07-04] MEDS: cloNIDine 0.1 MG TABLET PO SCH (22:12)
[2022-07-04] MEDS: HEPARIN 5,000 UNIT/1 ML VIAL SUBCUT SCH (22:16)
[2022-07-05] MEDS: ALBUTEROL/IPRATROPIUM 3 ML NEB RESP TX SCH ×4 (00:14→19:54)
[2022-07-05 05:48] LABS: Hematocrit 26.7 VOL% (42.0-52.0); Hemoglobin 8.6 GM/DL (14.0-18.0); Immature Granulocytes % 0.4 %; Immature Granulocytes Absolute 0.01 #; Lymphocytes # 0.7 10*3/uL (1.4-4.0); Lymphocytes % 24.3 % (21.2-54.2); Mean Corpuscular HGB Conc 32.2 GM/DL (32-36); Mean Corpuscular Volume 92.4 FL (87-102); Mean Platelet Volume 11.8 FL (9.6-12.0); Monocytes # 0.2 10*3/uL (0.11-0.8); Monocytes % 5.6 % (1.7-12.7); Neutrophils % 69.7 % (38.7-73.9); Platelet Count 60 T/CUMM (130-400); Red Blood Count 2.89 MC/CUMM (3.8-5.5); Red Cell Distribution Width 16.4 % (9.3-17.3); White Blood Count 2.84 T/CUMM (4-12)
[2022-07-05] MEDS: cefTRIAXone 1,000 MG in SODIUM CHLORIDE 0.9% 100 ML IV SCH ×2 (05:55→16:41)
[2022-07-05 06:13] LABS: Albumin 2.6 G/DL (3.4-5.0); Bilirubin,Total 1.3 MG/DL (0.20-1.00); Calcium 9.4 MG/DL (8.5-10.1); Osmolality,Calculated 301.5 MOS/KG (273-304); Potassium 4.4 MMOL/L (3.5-5.1); Total Protein 7.7 G/DL (6.4-8.2)
[2022-07-05 06:16] LABS: Eosinophils 1 % (0-10); Hypochromia Slight; Lymphocytes 17 % (20-55); Nucleated Red Blood Cells 1 /100 WBC (0-5); Platelet Estimate Decreased; Total Cells Counted 100
[2022-07-05] MEDS: cloNIDine 0.1 MG TABLET PO SCH ×2 (14:26→20:36)
[2022-07-05] MEDS: PANTOPRAZOLE 40 MG TABLET PO SCH (14:26)
[2022-07-05] MEDS: carvediloL 25 MG TABLET PO SCH ×2 (14:26→20:36)
[2022-07-05] MEDS: ASPIRIN CHEW 81 MG TABLET PO SCH (14:26)
[2022-07-05] MEDS: ROSUVASTATIN 20 MG TABLET PO SCH (14:26)
[2022-07-05] MEDS: amLODIPine 10 MG TABLET PO SCH (14:26)
[2022-07-05] MEDS: LOSARTAN 25 MG TABLET PO SCH (14:26)
[2022-07-05] MEDS: HEPARIN 5,000 UNIT/1 ML VIAL SUBCUT SCH (16:43)
[2022-07-05] MEDS: AZITHROMYCIN INJ 500 MG in SODIUM CHLORIDE 0.9% 250 ML IV SCH (17:37)
[2022-07-05] MEDS ORDERED: MULTIVITAMIN (BEROCCA) TABLET PO SCH (19:33)
[2022-07-05] MEDS: FENOFIBRATE 145 MG TABLET PO SCH (20:36)
[2022-07-06] MEDS: ALBUTEROL/IPRATROPIUM 3 ML NEB RESP TX SCH ×2 (01:00→07:41)
[2022-07-06] MEDS: carvediloL 25 MG TABLET PO SCH (09:21)
[2022-07-06] MEDS: ROSUVASTATIN 20 MG TABLET PO SCH (09:21)
[2022-07-06] MEDS: amLODIPine 10 MG TABLET PO SCH (09:21)
[2022-07-06] MEDS: LOSARTAN 25 MG TABLET PO SCH (09:22)
[2022-07-06] MEDS: ASPIRIN CHEW 81 MG TABLET PO SCH (09:22)
[2022-07-06] MEDS: PANTOPRAZOLE 40 MG TABLET PO SCH (09:22)
[2022-07-06] MEDS: cloNIDine 0.1 MG TABLET PO SCH (09:22)
[2022-07-06 12:04] VITALS: BP 110/63
[2022-07-06 14:12] LABS: Cholesterol < 50 MG/DL (50-200); HDL Cholesterol 15 MG/DL (40-60); Risk Ratio 3.33; Triglycerides 69 MG/DL (2-150); VLDL Cholesterol 13.8 MG/DL
== END 2022-07-06 14:40 | disposition home or self-care (01) ==
LOC: N.EDINP 13:53 → N.ED 13:53 → SUATTDRO 16:51 → N.2E 17:33
PROVIDERS: ADMIT Internal Medicine; ATTEND Internal Medicine